=== PATIENT | male | born 1965 | race Caucasian/White ===

== ENCOUNTER 2019-08-04 14:47 | Observation (INO) | payer OTHER ==
[2019-08-04] MEDS ORDERED: Lactated Ringers 1,000 ML IV SCH ×2 (15:00→16:30)
[2019-08-04] MEDS ORDERED: Sodium Chloride 0.9% 10 ML Syringe FLUSH PRN ×2 (15:00→15:06)
[2019-08-04] MEDS ORDERED: HYDROmorphone 1 MG/ML Syringe IVPUSH ONE ×2 (15:05→15:42)
[2019-08-04] MEDS ORDERED: Iopamidol 755 Mg/ML 100 ML Bottle IVPUSH ONE (15:06)
[2019-08-04] MEDS ORDERED: Sodium Chloride 0.9% 100 ML IV SCH (15:15)
--- NOTE | 2019-08-04 15:53 | CT ---
Head CT Technique: Multiple axial sections through the brain were obtained. Intravenous contrast was not utilized. Comparison: No prior intracranial imaging is available. Findings: Ventricles along with basal cisterns and sulci over the convexities appear within normal limits for the patient's age. No abnormal parenchymal densities are seen. No evidence of intracranial hemorrhage. No midline shift or mass effect is seen. Slight mucosal thickening is seen within the frontal and ethmoid sinuses as well as maxillary sinuses which is most likely chronic. Mastoid sinuses are clear. No acute calvarial abnormality is appreciated. Impression: 1. Nothing acute is appreciated on noncontrast head CT exam. Diagnostic code #1
--- NOTE | 2019-08-04 16:02 | CT ---
CT chest Technique: Multiple axial sections were obtained from above the lung apices inferiorly through the lung bases. Intravenous contrast was utilized. Reconstructed coronal and sagittal images were obtained. Findings: Aorta shows no aneurysm. Mediastinum and hilar regions show no adenopathy. Small pretracheal lymph nodes are seen which are felt to be within normal limits. No axillary adenopathy is seen. No pericardial effusion is seen. Lungs show no acute parenchymal change. No pleural effusions or pneumothorax is seen. Fracture is noted within the left posterolateral seventh and eighth ribs. No discrete fracture is seen within the thoracic spine. Sternum appears to be intact. Impression: 1. Fractures within the left posterolateral seventh and eighth ribs. 2. No other acute abnormality is appreciated on CT study of the chest. Diagnostic code #3 CT abdomen and pelvis Technique: Multiple axial sections were obtained from above the dome of the diaphragm inferiorly to the pubic symphysis. Intravenous contrast was utilized. No oral contrast has been given. Findings: Liver shows no focal parenchymal abnormality. Gallbladder contains no calcified gallstones. Adrenal glands show no nodule. Pancreas is within normal limits. Multiple cysts are seen within the kidneys. Abnormal spleen as noted with low density intrasplenic hematoma seen as well as small subcapsular hematoma and small splenic laceration. This splenic injury does not appear to involve the vascular pedicle with intrasplenic hematoma measuring 4.8 cm. Findings are felt compatible with grade 2 splenic injury. Aorta shows no aneurysm. No retroperitoneal adenopathy or mesenteric abnormalities are seen. No pelvic mass or adenopathy is seen. No free fluid or inflammatory changes seen. Bone window settings were reviewed which shows no acute osseous abnormality. Impression: 1. Splenic laceration with intrasplenic hematoma and small sub-capsular hematoma. Findings felt compatible with grade 2 injury. 2. No other acute abnormality is seen on CT study of the abdomen and pelvis. Incidental renal cysts are seen. Diagnostic code #3
--- NOTE | 2019-08-04 16:08 | CT ---
CT cervical spine Technique: Multiple axial sections were obtained from above C1 inferiorly to the top of T2. Reconstructed sagittal and coronal images were reviewed. Findings: Mild disc space narrowing is noted at C3-C4. Minimal posterior spurring is noted at C3-C4. Mild disc space narrowing is noted at C4-C5. Mild posterior disc space narrowing is noted C5-C6. Vertebral body heights are maintained. Mild degenerative change is noted between the dens and anterior arch of C1. Mild degenerative change is scattered within the apophyseal joints. No bony central or bony neural foraminal stenosis is seen. No cervical spine fracture is seen. No abnormal subluxation is seen. Impression: 1. Mild diffuse degenerative change. 2. No acute fracture or abnormal subluxation is seen on CT study of cervical spine. Diagnostic code #2
--- NOTE | 2019-08-04 16:08 | CT ---
CT thoracic spine Technique: Multiple axial sections through the thoracic spine were obtained. Reconstructed coronal and sagittal images were obtained. Findings: Slight scoliosis is seen. No fracture is identified. No subluxation is seen. No central canal stenosis or neural foraminal stenosis is seen. Impression: 1. Nothing acute is appreciated on CT study of the thoracic spine. Diagnostic code #2
[2019-08-04] MEDS ORDERED: Morphine 2 MG/ML Syringe IVPUSH PRN (16:20)
--- NOTE | 2019-08-04 16:30 | PCM.HP.2 ---
H&P History of Present Illness - General Date of Service: 08/04/19 Admit Problem/Dx: Admission Diagnosis/Problem Admission Diagnosis/Problem Rib injury Source of Information: Patient History Limitations: Reports: No Limitations - History of Present Illness Onset of Symptoms: Reports: Today Duration of Symptoms: Reports: Hour(s): Location: Reports: Chest, Lower Extremity, Left Quality: Reports: Ache Severity: Severe Worsens with: Reports: Movement Context: Reports: Trauma Other HPI/Comments: 54 yo man fell 12 ft off a ladder 3 hours ago. He reports left sided chest pain , left knee and ankle pain. CT imaging shows 2 left sided rib fractures and a grade II splenic laceration. Chest Pain Score (Numeric/FACES): 10 - Related Data Allergies/Adverse Reactions: Allergies Allergy/AdvReac Type Severity Reaction Status Date / Time No Known Allergies Allergy Verified 08/04/19 15:01 Home Medications: Home Meds . [No Known Home Meds] 08/04/19 [History] Past Medical History HEENT History: Reports: None Cardiovascular History: Reports: None Respiratory History: Reports: None Gastrointestinal History: Reports: None Genitourinary History: Reports: None Neurological History: Reports: None Psychiatric History: Reports: None Endocrine/Metabolic History: Reports: None Hematologic History: Reports: None Immunologic History: Reports: None Oncologic (Cancer) History: Reports: None Dermatologic History: Reports: None - Infectious Disease History Infectious Disease History: Reports: None - Past Surgical History Head Surgeries/Procedures: Reports: None Other Musculoskeletal Surgeries/Procedures:: Left ankle surgery. Social & Family History - Tobacco Use Smoking Status *Q: Current Every Day Smoker Years of Tobacco use: 30 Packs/Tins Daily: 1 - Caffeine Use Caffeine Use: Reports: Soda - Recreational Drug Use Recreational Drug Use: Yes Recreational Drug Type: Reports: Marijuana/Hashish H&P Review of Systems - Review of Systems: Review Of Systems: See Below General: Reports: No Symptoms HEENT: Reports: No Symptoms Pulmonary: Reports: Cough, Sputum Cardiovascular: Reports: Chest Pain Gastrointestinal: Reports: No Symptoms Genitourinary: Reports: No Symptoms Musculoskeletal: Reports: Leg Pain, Foot Pain, Joint Swelling Skin: Reports: No Symptoms Psychiatric: Reports: No Symptoms Neurological: Reports: No Symptoms Hematologic/Lymphatic: Reports: No Symptoms Immunologic: Reports: No Symptoms Exam - Exam Exam: See Below - Vital Signs Vital Signs: Last Vital Signs Temp 36.1 C 08/04/19 14:58 Pulse 81 08/04/19 14:58 Resp 20 08/04/19 14:58 BP 95/78 08/04/19 14:58 Pulse Ox 96 08/04/19 14:58 Weight: 86.183 kg - Exam General: Alert, Oriented, Mild Distress HEENT: Conjunctiva Clear Neck: Supple Lungs: Clear to Auscultation Cardiovascular: Regular Rate GI/Abdominal Exam: Soft (Male) Exam: Deferred Rectal (Males) Exam: Deferred Back Exam: Normal Inspection Extremities: Other Skin: Warm, Dry Neurological: Sensation Intact Neuro Extensive - Mental Status: Alert, Oriented x3 Psychiatric: Alert, Normal Affect, Normal Mood - Patient Data Lab Results Last 24 hrs: Laboratory Results - last 24 hr 08/04/19 08/04/19 Range/Units 15:00 15:00 WBC 15.61 H (4.23-9.07) K/mm3 RBC 4.75 (4.63-6.08) M/mm3 Hgb 14.3 (13.7-17.5) gm/dl Hct 43.4 (40.1-51.0) % MCV 91.4 (79.0-92.2) fl MCH 30.1 (25.7-32.2) pg MCHC 32.9 (32.2-35.5) g/dl RDW Std Deviation 48.4 H (35.1-43.9) fL Plt Count 309 (163-337) K/mm3 MPV 8.7 L (9.4-12.3) fl Neut % (Auto) 80.0 H (34.0-67.9) % Lymph % (Auto) 11.9 L (21.8-53.1) % [place] % (Auto) 6.7 (5.3-12.2) % Eos % (Auto) 0.8 (0.8-7.0) Baso % (Auto) 0.2 (0.1-1.2) % Neut # (Auto) 12.48 H (1.78-5.38) K/mm3 Lymph # (Auto) 1.86 (1.32-3.57) K/mm3 [place] # (Auto) 1.04 H (0.30-0.82) K/mm3 Eos # (Auto) 0.13 (0.04-0.54) K/mm3 Baso # (Auto) 0.03 (0.01-0.08) K/mm3 Manual Slide Review Abnormal smear Sodium 142 (136-145) mEq/L Potassium 3.6 (3.5-5.1) mEq/L Chloride 106 (98-107) mEq/L Carbon Dioxide 28 (21-32) mEq/L Anion Gap 11.6 (5-15) BUN 16 (7-18) mg/dL Creatinine 0.9 (0.7-1.3) mg/dL Est Cr Clr Drug Dosing 95.76 mL/min Estimated GFR (MDRD) > 60 (>60) mL/min BUN/Creatinine Ratio 17.8 (14-18) Glucose 96 (74-106) mg/dL Calcium 8.9 (8.5-10.1) mg/dL Total Bilirubin 0.5 (0.2-1.0) mg/dL AST 45 H (15-37) U/L ALT 67 H (16-63) U/L Alkaline Phosphatase 100 (46-116) U/L Total Protein 7.6 (6.4-8.2) g/dl Albumin 3.4 (3.4-5.0) g/dl Globulin 4.2 gm/dL Albumin/Globulin Ratio 0.8 L (1-2) Lipase 146 (73-393) U/L Ethyl Alcohol 0.00 (0.00) gm% Result Diagrams: 08/04/19 15:00 08/04/19 15:00 *Q Meaningful Use (ADM) - VTE *Q VTE Mechanical Contraindications *Q: At Risk for Falls - VTE Risk Assess *Q Each Risk Factor Represents 1 Point: Age 41 - 59 years Total Score 1 Point Risk Factors: 1 Each Risk Factor Represents 5 Points: Multiple Trauma, Less than 1 Month Total Score 5 Point Risk Factors: 5 Problem List Initiated/Reviewed/Updated: Yes Orders Last 24hrs: Active Orders 24 hr Category Date Time Status Patient Status [ADT] Routine ADT 08/04/19 16:17 Active Activity as Tolerated [RC] .Routine Care 08/04/19 16:17 Active Antiembolic Devices [RC] PER UNIT ROUTINE Care 08/04/19 16:18 Active Antiembolic Devices [RC] PER UNIT ROUTINE Care 08/04/19 16:22 Active Cardiac Monitoring [RC] . DIRECTED Care 08/04/19 15:01 Active Chest Physiotherapy [RT Chest Physiotherapy] [RC] Care 08/04/19 16:20 Active ASDIRECTED Oxygen Therapy [RC] PRN Care 08/04/19 16:17 Active Oxygen Therapy [RC] PRN Care 08/04/19 16:21 Active Peripheral IV Care [RC] . DIRECTED Care 08/04/19 15:01 Active RT Incentive Spirometry [RC] Q1HWA Care 08/04/19 16:17 Active Vital Signs [RC] Q15M Care 08/04/19 16:17 Active Vital Signs [RC] Q4HR Care 08/04/19 16:17 Active Ankle Min 3V Lt [CR] Stat Exams 08/04/19 15:04 Taken Chest 2V [CR] Routine Exams 08/05/19 08:00 Ordered Knee Min 4V Lt [CR] Stat Exams 08/04/19 15:04 Taken BASIC METABOLIC PANEL,BMP [CHEM] AM Lab 08/05/19 05:11 Ordered CBC WITH AUTO DIFF [HEME] AM Lab 08/05/19 05:11 Ordered DRUG SCREEN, URINE [URCHEM] Stat Lab 08/04/19 15:00 Ordered UA W/MICROSCOPIC [URIN] Stat Lab 08/04/19 15:00 Ordered Acetaminophen [Tylenol] Med 08/04/19 16:30 Ordered 975 mg PO Q8H Lactated Ringers [Ringers, Lactated] 1,000 ml Med 08/04/19 15:00 Active IV ASDIRECTED Lactated Ringers [Ringers, Lactated] 1,000 ml Med 08/04/19 16:30 Ordered IV ASDIRECTED Morphine Med 08/04/19 16:20 Ordered 1 mg IVPUSH Q4H PRN Sodium Chloride 0.9% [Normal Saline] 100 ml Med 08/04/19 15:15 Active IV ASDIRECTED Sodium Chloride 0.9% [Saline Flush] Med 08/04/19 15:00 Active 10 ml FLUSH ASDIRECTED PRN Sodium Chloride 0.9% [Saline Flush] Med 08/04/19 15:06 Active 10 ml FLUSH ONETIME PRN oxyCODONE Med 08/04/19 16:17 Ordered 5 mg PO Q4H PRN Peripheral IV Insertion Adult [OM.PC] Stat Oth 08/04/19 15:00 Ordered Sequential Compression Device [OM.PC] Routine Oth 08/04/19 16:17 Ordered Sequential Compression Device [OM.PC] Routine Oth 08/04/19 16:22 Ordered Resuscitation Status Routine Resus Stat 08/04/19 16:17 Ordered Medication Orders Acetaminophen (Tylenol) 975 mg PO Q8H CYNTHIA Lactated Ringer's (Ringers, Lactated) 1,000 mls @ 125 mls/hr IV ASDIRECTED CYNTHIA Last Admin: 08/04/19 15:11 Dose: 125 mls/hr Sodium Chloride (Normal Saline) 100 mls @ 75 mls/hr IV ASDIRECTED CYNTHIA Last Admin: 08/04/19 15:30 Dose: 75 mls/hr Lactated Ringer's (Ringers, Lactated) 1,000 mls @ 100 mls/hr IV ASDIRECTED CYNTHIA Morphine Sulfate (Morphine) 1 mg IVPUSH Q4H PRN PRN Reason: Pain (severe 7-10) Oxycodone HCl (Oxycodone) 5 mg PO Q4H PRN PRN Reason: Pain (moderate 4-6) Sodium Chloride (Saline Flush) 10 ml FLUSH ASDIRECTED PRN PRN Reason: Keep Vein Open Last Admin: 08/04/19 15:10 Dose: 10 ml Sodium Chloride (Saline Flush) 10 ml FLUSH ONETIME PRN PRN Reason: IV FLUSH Last Admin: 08/04/19 15:30 Dose: 10 ml Assessment/Plan Comment:: Blunt trauma with splenic laceration and two left sided rib fractures. The left ankle is tender and swollen, final interpretation pending but X-rays look reassuring. Plan to admit for observation, pain control, and recheck CBC in AM. - Mortality Measure Prognosis:: Good
--- NOTE | 2019-08-04 17:28 | EDM.PDOC ---
ED HPI GENERAL MEDICAL PROBLEM - General Chief Complaint: Trauma Stated Complaint: FELL 12 FEET OFF LADDER RIB AND LT ANKLE INJURY Time Seen by Provider: 08/04/19 14:53 Source of Information: Reports: Patient History Limitations: Reports: No Limitations - History of Present Illness INITIAL COMMENTS - FREE TEXT/NARRATIVE: The patient presents after falling 12 fee off of a ladder. He has left chest and left upper back pain. He also has pain in his left knee and ankle. He does not think he his his head or hurt his neck. He has some pain to his upper abdomen also on the left side. He has no pelvic pain. He does smoke. He has pain to his left ankle and knee. He had surgery on his left ankle in the past. Onset: Today Duration: Hour(s): Location: Reports: Chest, Back, Lower Extremity, Left Quality: Reports: Ache Severity: Severe Worsens with: Reports: Movement Context: Reports: Trauma (Fell 12 feet off of a ladder) Associated Symptoms: Reports: Chest Pain, Shortness of Breath. Denies: Cough, Fever/Chills, Headaches, Nausea/Vomiting Chest Pain Score (Numeric/FACES): 10 - Related Data Allergies Allergy/AdvReac Type Severity Reaction Status Date / Time No Known Allergies Allergy Verified 08/04/19 15:01 Home Meds: Home Meds . [No Known Home Meds] 08/04/19 [History] Past Medical History HEENT History: Reports: None Cardiovascular History: Reports: None Respiratory History: Reports: None Gastrointestinal History: Reports: None Genitourinary History: Reports: None Neurological History: Reports: None Psychiatric History: Reports: None Endocrine/Metabolic History: Reports: None Hematologic History: Reports: None Immunologic History: Reports: None Oncologic (Cancer) History: Reports: None Dermatologic History: Reports: None - Infectious Disease History Infectious Disease History: Reports: None - Past Surgical History Head Surgeries/Procedures: Reports: None Other Musculoskeletal Surgeries/Procedures:: Left ankle surgery. Social & Family History - Tobacco Use Smoking Status *Q: Current Every Day Smoker Years of Tobacco use: 30 Packs/Tins Daily: 1 - Caffeine Use Caffeine Use: Reports: Soda - Recreational Drug Use Recreational Drug Use: Yes Recreational Drug Type: Reports: Marijuana/Hashish ED ROS GENERAL - Review of Systems Review Of Systems: See Below Constitutional: Reports: No Symptoms HEENT: Reports: No Symptoms Respiratory: Reports: Shortness of Breath Cardiovascular: Reports: Chest Pain Endocrine: Reports: No Symptoms GI/Abdominal: Reports: Abdominal Pain. Denies: Nausea, Vomiting : Reports: No Symptoms Musculoskeletal: Reports: Back Pain Neurological: Reports: No Symptoms Psychiatric: Reports: No Symptoms ED EXAM, GENERAL - Physical Exam Exam: See Below Exam Limited By: No Limitations General Appearance: Alert, Moderate Distress Ears: Normal External Exam Nose: Normal Inspection Head: Atraumatic, Normocephalic Neck: Normal Inspection, Supple, Non-Tender Respiratory/Chest: Lungs Clear, Normal Breath Sounds, Other (Pain upon palpation to the left lateral chest and left back) Cardiovascular: Regular Rate, Rhythm, No Edema, No Murmur GI/Abdominal: Soft, No Organomegaly, Tender (Moderate tednerness to the left upper abdomen) Back Exam: Other (Pain upon palpation to the left lateral back) Extremities: Other (Pain upon palpation to the left ankle with good sensation and pulses. Pain upon palpation to the left knee.) Course - Vital Signs Last Recorded V/S: Last Vital Signs Temp 96.9 F 08/04/19 14:58 Pulse 81 08/04/19 14:58 Resp 20 08/04/19 14:58 BP 95/78 08/04/19 14:58 Pulse Ox 96 08/04/19 14:58 - Orders/Labs/Meds Orders: Active Orders 24 hr Category Date Time Status Cardiac Monitoring [RC] . DIRECTED Care 08/04/19 15:01 Active Peripheral IV Care [RC] . DIRECTED Care 08/04/19 15:01 Active Ankle Min 3V Lt [CR] Stat Exams 08/04/19 15:04 Taken Knee Min 4V Lt [CR] Stat Exams 08/04/19 15:04 Taken DRUG SCREEN, URINE [URCHEM] Stat Lab 08/04/19 15:00 Ordered UA W/MICROSCOPIC [URIN] Stat Lab 08/04/19 15:00 Ordered Sodium Chloride 0.9% [Saline Flush] Med 08/04/19 15:00 Active 10 ml FLUSH ASDIRECTED PRN Sodium Chloride 0.9% [Saline Flush] Med 08/04/19 15:06 Active 10 ml FLUSH ONETIME PRN Peripheral IV Insertion Adult [OM.PC] Stat Oth 08/04/19 15:00 Ordered Medication Orders Acetaminophen (Tylenol) 975 mg PO Q8H CYNTHIA Lactated Ringer's (Ringers, Lactated) 1,000 mls @ 100 mls/hr IV ASDIRECTED CYNTHIA Morphine Sulfate (Morphine) 1 mg IVPUSH Q4H PRN PRN Reason: Pain (severe 7-10) Oxycodone HCl (Oxycodone) 5 mg PO Q4H PRN PRN Reason: Pain (moderate 4-6) Sodium Chloride (Saline Flush) 10 ml FLUSH ASDIRECTED PRN PRN Reason: Keep Vein Open Last Admin: 08/04/19 15:10 Dose: 10 ml Sodium Chloride (Saline Flush) 10 ml FLUSH ONETIME PRN PRN Reason: IV FLUSH Last Admin: 08/04/19 15:30 Dose: 10 ml Labs: Laboratory Tests 08/04/19 08/04/19 Range/Units 15:00 15:00 WBC 15.61 H (4.23-9.07) K/mm3 RBC 4.75 (4.63-6.08) M/mm3 Hgb 14.3 (13.7-17.5) gm/dl Hct 43.4 (40.1-51.0) % MCV 91.4 (79.0-92.2) fl MCH 30.1 (25.7-32.2) pg MCHC 32.9 (32.2-35.5) g/dl RDW Std Deviation 48.4 H (35.1-43.9) fL Plt Count 309 (163-337) K/mm3 MPV 8.7 L (9.4-12.3) fl Neut % (Auto) 80.0 H (34.0-67.9) % Lymph % (Auto) 11.9 L (21.8-53.1) % [place] % (Auto) 6.7 (5.3-12.2) % Eos % (Auto) 0.8 (0.8-7.0) Baso % (Auto) 0.2 (0.1-1.2) % Neut # (Auto) 12.48 H (1.78-5.38) K/mm3 Lymph # (Auto) 1.86 (1.32-3.57) K/mm3 [place] # (Auto) 1.04 H (0.30-0.82) K/mm3 Eos # (Auto) 0.13 (0.04-0.54) K/mm3 Baso # (Auto) 0.03 (0.01-0.08) K/mm3 Manual Slide Review Abnormal smear Sodium 142 (136-145) mEq/L Potassium 3.6 (3.5-5.1) mEq/L Chloride 106 (98-107) mEq/L Carbon Dioxide 28 (21-32) mEq/L Anion Gap 11.6 (5-15) BUN 16 (7-18) mg/dL Creatinine 0.9 (0.7-1.3) mg/dL Est Cr Clr Drug Dosing 95.76 mL/min Estimated GFR (MDRD) > 60 (>60) mL/min BUN/Creatinine Ratio 17.8 (14-18) Glucose 96 (74-106) mg/dL Calcium 8.9 (8.5-10.1) mg/dL Total Bilirubin 0.5 (0.2-1.0) mg/dL AST 45 H (15-37) U/L ALT 67 H (16-63) U/L Alkaline Phosphatase 100 (46-116) U/L Total Protein 7.6 (6.4-8.2) g/dl Albumin 3.4 (3.4-5.0) g/dl Globulin 4.2 gm/dL Albumin/Globulin Ratio 0.8 L (1-2) Lipase 146 (73-393) U/L Ethyl Alcohol 0.00 (0.00) gm% Meds: Medications Generic Name Dose Route Start Last Admin Trade Name Freq PRN Reason Stop Dose Admin Acetaminophen 975 mg 08/04/19 16:30 Tylenol PO Q8H CYNTHIA Lactated Ringer's 1,000 mls @ 100 mls/hr 08/04/19 16:30 Ringers, Lactated IV ASDIRECTED CYNTHIA Morphine Sulfate 1 mg 08/04/19 16:20 Morphine IVPUSH Q4H PRN Pain (severe 7-10) Oxycodone HCl 5 mg 08/04/19 16:17 Oxycodone PO Q4H PRN Pain (moderate 4-6) Sodium Chloride 10 ml 08/04/19 15:00 08/04/19 15:10 Saline Flush FLUSH 10 ml ASDIRECTED PRN Administration Keep Vein Open Sodium Chloride 10 ml 08/04/19 15:06 08/04/19 15:30 Saline Flush FLUSH 10 ml ONETIME PRN Administration IV FLUSH Discontinued Medications Generic Name Dose Route Start Last Admin Trade Name Adithya PRN Reason Stop Dose Admin Hydromorphone HCl 1 mg 08/04/19 15:05 08/04/19 15:09 Dilaudid IVPUSH 08/04/19 15:06 1 mg ONETIME ONE Administration Hydromorphone HCl 1 mg 08/04/19 15:42 08/04/19 15:49 Dilaudid IVPUSH 08/04/19 15:43 1 mg ONETIME ONE Administration Lactated Ringer's 1,000 mls @ 125 mls/hr 08/04/19 15:00 08/04/19 15:11 Ringers, Lactated IV 125 mls/hr ASDIRECTED CYNTHIA Administration Sodium Chloride 100 mls @ 75 mls/hr 08/04/19 15:15 08/04/19 15:30 Normal Saline IV 75 mls/hr ASDIRECTED CYNTHIA Administration Iopamidol 100 ml 08/04/19 15:06 08/04/19 15:30 [id number] (76%) IVPUSH 08/04/19 15:07 100 ml ONETIME ONE Administration - Re-Assessments/Exams Free Text/Narrative Re-Assessment/Exam: 08/04/19 17:30 I ordered an IV LR at 125mL/hr, dilaudid 1mg IV, CT of his head, cervical spine , thoracic spine, chest, abdomen and pelvis. I have also ordered labs and an x- ray of his ankle and knee. 08/04/19 18:[address] of his thoracic spine shows nothing acute. The CT of his cervical spine shows mild diffuse degenerative change. No acute fracture or abnormal subluxation is seen on CT study of the cervical spine. The CT of his head shows nothing acute is appreciated on noncontrast head CT exam. The CT of his chest shows fractures within the left posterolateral seventh and eighth ribs. No other acute abnormality is appreciated on CT study of the chest. The CT of his abdomen and pelvis shows splenic laceration with intrasplenic hematoma and small sub-capsular hematoma. Findings felt compatible with grade 2 injury. No other acute abnormality is seen on CT study of the abdomen and pelvis. Incidental renal cysts are seen. 08/04/19 18:25 His WBC was elevated at 15.61. His AST is elevated at 45. His ALT is elevated at 67. His lipase is normal. His ETOH is 0. I [address] Dr Otto and he came to see the patient and he admitted him. Departure - Departure Time of Disposition: 18:30 Disposition: Refer to Observation Condition: Fair Clinical Impression: Fall Qualifiers: Encounter type: initial encounter Qualified Code(s): W19.XXXA - Unspecified fall, initial encounter Splenic laceration Qualifiers: Encounter type: initial encounter Qualified Code(s): S36.039A - Unspecified laceration of spleen, initial encounter Broken ribs Qualifiers: Encounter type: initial encounter Rib fracture type: multiple ribs Fracture type: closed Laterality: left Qualified Code(s): S22.42XA - Multiple fractures of ribs, left side, initial encounter for closed fracture - Discharge Information - My Orders Last 24 Hours: My Active Orders 08/04/19 15:00 DRUG SCREEN, URINE [URCHEM] Stat UA W/MICROSCOPIC [URIN] Stat Sodium Chloride 0.9% [Saline Flush] 10 ml FLUSH ASDIRECTED PRN Peripheral IV Insertion Adult [OM.PC] Stat 08/04/19 15:01 Cardiac Monitoring [RC] . DIRECTED Peripheral IV Care [RC] . DIRECTED 08/04/19 15:04 Ankle Min 3V Lt [CR] Stat Knee Min 4V Lt [CR] Stat 08/04/19 15:06 Sodium Chloride 0.9% [Saline Flush] 10 ml FLUSH ONETIME PRN - Assessment/Plan Last 24 Hours: My Active Orders 08/04/19 15:00 DRUG SCREEN, URINE [URCHEM] Stat UA W/MICROSCOPIC [URIN] Stat Sodium Chloride 0.9% [Saline Flush] 10 ml FLUSH ASDIRECTED PRN Peripheral IV Insertion Adult [OM.PC] Stat 08/04/19 15:01 Cardiac Monitoring [RC] . DIRECTED Peripheral IV Care [RC] . DIRECTED 08/04/19 15:04 Ankle Min 3V Lt [CR] Stat Knee Min 4V Lt [CR] Stat 08/04/19 15:06 Sodium Chloride 0.9% [Saline Flush] 10 ml FLUSH ONETIME PRN
[2019-08-04] MEDS: Acetaminophen 325 MG Tab PO SCH (18:26)
--- NOTE | 2019-08-04 18:44 | CR ---
Left ankle: 3 views left ankle were obtained. Comparison: No prior ankle study. Mild soft tissue swelling is seen. Small plantar spur is noted. No acute fracture, dislocation or other acute bony abnormality is appreciated. Small calcification is seen posteriorly which projects within the Achilles tendon presumably due to old Achilles tendinitis. Impression: 1. Findings as noted above. 2. No acute bony abnormality is appreciated. Diagnostic code #2
[2019-08-04] MEDS: oxyCODONE 5 MG Tab PO PRN (20:54)
[2019-08-05] MEDS: Acetaminophen 325 MG Tab PO SCH ×3 (00:18→16:29)
[2019-08-05] MEDS: oxyCODONE 5 MG Tab PO PRN ×2 (02:35→07:57)
[2019-08-05] MEDS ORDERED: oxyCODONE 5 MG Tab PO PRN (07:44)
--- NOTE | 2019-08-05 08:53 | PCM.SN ---
- Free Text/Narrative Note: S: poor pain control. O: AF-VSS Gen: mild distress. awake and alert Pulm: slight tachypnea, good inspiratory effort CV: RRR Abd: soft MSK: left knee tenderness and left ankle swelling and tenderness Radiology: two left sided rib fractures, no bony abnormality noted on plain films of left ankle, knee A: Trauma, fall, with rib fractures, subcapsular splenic hematoma (no worrisome drop in Hgb since admission- Hgb 13 this AM), left ankle sprain Plan: Vitals q 8 Toradol 15 mg q6h scheduled for 24 hours d/c morphine, continue with oxycodone 5-10 mg as needed joe regular diet Physical therapy eval Continue pulmonary toilet Anticipate discharge today or tomorrow if pain is manageable
[2019-08-05] MEDS: Ketorolac 15 MG/ML SDV IVPUSH SCH ×2 (09:32→14:26)
--- NOTE | 2019-08-05 10:12 | CR ---
Chest: 2 views of the chest were obtained. Comparison: Prior chest CT study of 08/04/19. Findings: Mild left basilar atelectasis is noted. Lungs otherwise are clear. No pneumothorax is seen. Fractures are noted within the left 7th and 8th ribs. Old healed fracture is noted within the left clavicle. No additional bony abnormality is appreciated. Heart size and mediastinum are normal. Impression: 1. 2 left lower rib fractures. Old healed left clavicle fracture. 2. Mild left basilar atelectasis. No pneumothorax is seen. Diagnostic code #3
--- NOTE | 2019-08-05 13:45 | CR ---
Left knee: Four views of the left knee were obtained. Comparison: No prior knee exam. Moderate medial joint space narrowing is seen. Lateral joint space is preserved. No joint effusion is seen. No fracture, dislocation or other bony abnormality is seen. Impression: 1. Moderate medial joint space narrowing. 2. Nothing acute is appreciated on left knee exam. Diagnostic code #2
--- NOTE | 2019-08-05 17:35 | PCM.DCSUM1 ---
Discharge Summary - Hospital Course Free Text/Narrative:: Admitted for observation after 12 foot fall from ladder with two left sided rib fractures, grade 2 splenic laceration, and left ankle sprain. Diagnosis: Stroke: No - Discharge Data Discharge Date: 08/05/19 (with DME) Discharge Disposition: Home, Self-Care 01 Condition: Good - Referral to Home Health Primary Care Physician: PCP None - Patient Summary/Data Consults: Consultations 08/05/19 07:46 Consult to Physical Therapy [PT Evaluation and Treatment] [CONS] Routine Hospital Course: Admitted for observation and pain control. Weaned off IV narcotics and received 24 hrs scheduled toradol. Repeat CBC showed insignificant drop in Hgb. He was evaluated by PT and will go home with a walker and shower chair. His pain was well enough controlled 24 hours after admission that he was deemed fit for discharge. He was able to draw 2L on incentive spirometry and never required supplemental oxygen to maintain O2 saturations. - Patient Instructions Diet: Regular Diet as Tolerated Activity: Partial Weight Bearing Activity, Other: continue incentive spirometry - Discharge Plan *PRESCRIPTION DRUG MONITORING PROGRAM REVIEWED*: Not Applicable *COPY OF PRESCRIPTION DRUG MONITORING REPORT IN PATIENT GUS: Not Applicable Prescriptions/Med Rec: oxyCODONE 5 mg PO Q4H PRN #40 tab PRN Reason: Pain Home Medications: Home Meds oxyCODONE 5 mg PO Q4H PRN #40 tab 08/05/19 [Rx] Other Amb Orders: DME for Discharge [COMM] Location: None Selected Oxygen Therapy Mode: Room Air Forms: ED Department Discharge Referrals: PCP,None [Primary Care Provider] - - Discharge Summary/Plan Comment DC Time >30 min.: Yes Discharge Summary/Plan Comment: follow up with PCP. Follow up in surgery clinic in [place] as needed. - Patient Data Vitals - Most Recent: Last Vital Signs Temp 36.7 C 08/05/19 15:14 Pulse 70 08/05/19 15:14 Resp 18 08/05/19 15:14 BP 130/75 08/05/19 15:14 Pulse Ox 93 L 08/05/19 15:14 Weight - Most Recent: 88.224 kg I&O - Last 24 hours: Intake & Output 08/05/19 08/05/19 08/05/19 06:59 14:59 22:59 Intake Total 240 750 Output Total 400 Balance 240 350 Lab Results - Last 24 hrs: Laboratory Results - last 24 hr 08/05/19 08/05/19 08/05/19 Range/Units 03:01 03:01 05:32 WBC 11.05 H (4.23-9.07) K/mm3 RBC 4.31 L (4.63-6.08) M/mm3 Hgb 13.0 L (13.7-17.5) gm/dl Hct 39.6 L (40.1-51.0) % MCV 91.9 (79.0-92.2) fl MCH 30.2 (25.7-32.2) pg MCHC 32.8 (32.2-35.5) g/dl RDW Std Deviation 49.5 H (35.1-43.9) fL Plt Count 238 (163-337) K/mm3 MPV 9.0 L (9.4-12.3) fl Neut % (Auto) 66.9 (34.0-67.9) % Lymph % (Auto) 21.7 L (21.8-53.1) % Island % (Auto) 9.7 (5.3-12.2) % Eos % (Auto) 1.0 (0.8-7.0) Baso % (Auto) 0.2 (0.1-1.2) % Neut # (Auto) 7.40 H (1.78-5.38) K/mm3 Lymph # (Auto) 2.40 (1.32-3.57) K/mm3 [place] # (Auto) 1.07 H (0.30-0.82) K/mm3 Eos # (Auto) 0.11 (0.04-0.54) K/mm3 Baso # (Auto) 0.02 (0.01-0.08) K/mm3 Sodium (136-145) mEq/L Potassium (3.5-5.1) mEq/L Chloride (98-107) mEq/L Carbon Dioxide (21-32) mEq/L Anion Gap (5-15) BUN (7-18) mg/dL Creatinine (0.7-1.3) mg/dL Est Cr Clr Drug Dosing mL/min Estimated GFR (MDRD) (>60) mL/min BUN/Creatinine Ratio (14-18) Glucose (74-106) mg/dL Calcium (8.5-10.1) mg/dL Urine Color Yellow (Yellow) Urine Appearance Clear (Clear) Urine pH 6.0 (5.0-8.0) Ur Specific [place] 1.020 (1.005-1.030) Urine Protein Trace H (Negative) Urine Glucose (UA) Negative (Negative) Urine Ketones Negative (Negative) Urine Occult Blood Negative (Negative) Urine Nitrite Negative (Negative) Urine Bilirubin 1+ H (Negative) Urine Urobilinogen 1.0 (0.2-1.0) Ur Leukocyte Esterase Negative (Negative) Urine Opiates Screen Negative (VRPQRA=678) Ur Buprenorphine Scrn Negative (CUTOFF=10) Ur Oxycodone Screen Presumptive positive H (ZCX2WC=970) Urine Methadone Screen Negative (GUS0EW=514) Ur Propoxyphene Screen Negative (VYLQZM=881) Ur Barbiturates Screen Negative (IDWEKC=087) Ur Tricyclics Screen Negative (AIDHMO=462) Ur Phencyclidine Scrn Negative (CUTOFF=25) Ur Amphetamine Screen Negative (UERLPE=542) U Methamphetamines Scrn Negative (ZUIYYT=252) U Benzodiazepines Scrn Negative (SDWSNY=170) U Cocaine Metab Screen Negative (AEUFFU=596) U Marijuana (THC) Screen Presumptive positive H (CUTOFF=50) 08/05/19 Range/Units 05:32 WBC (4.23-9.07) K/mm3 RBC (4.63-6.08) M/mm3 Hgb (13.7-17.5) gm/dl Hct (40.1-51.0) % MCV (79.0-92.2) fl MCH (25.7-32.2) pg MCHC (32.2-35.5) g/dl RDW Std Deviation (35.1-43.9) fL Plt Count (163-337) K/mm3 MPV (9.4-12.3) fl Neut % (Auto) (34.0-67.9) % Lymph % (Auto) (21.8-53.1) % Island % (Auto) (5.3-12.2) % Eos % (Auto) (0.8-7.0) Baso % (Auto) (0.1-1.2) % Neut # (Auto) (1.78-5.38) K/mm3 Lymph # (Auto) (1.32-3.57) K/mm3 [place] # (Auto) (0.30-0.82) K/mm3 Eos # (Auto) (0.04-0.54) K/mm3 Baso # (Auto) (0.01-0.08) K/mm3 Sodium 140 (136-145) mEq/L Potassium 3.2 L (3.5-5.1) mEq/L Chloride 106 (98-107) mEq/L Carbon Dioxide 24 (21-32) mEq/L Anion Gap 13.2 (5-15) BUN 14 (7-18) mg/dL Creatinine 0.8 (0.7-1.3) mg/dL Est Cr Clr Drug Dosing 107.73 mL/min Estimated GFR (MDRD) > 60 (>60) mL/min BUN/Creatinine Ratio 17.5 (14-18) Glucose 109 H (74-106) mg/dL Calcium 8.3 L (8.5-10.1) mg/dL Urine Color (Yellow) Urine Appearance (Clear) Urine pH (5.0-8.0) Ur Specific [place] (1.005-1.030) Urine Protein (Negative) Urine Glucose (UA) (Negative) Urine Ketones (Negative) Urine Occult Blood (Negative) Urine Nitrite (Negative) Urine Bilirubin (Negative) Urine Urobilinogen (0.2-1.0) Ur Leukocyte Esterase (Negative) Urine Opiates Screen (QOTTTD=446) Ur Buprenorphine Scrn (CUTOFF=10) Ur Oxycodone Screen (YLY9UJ=361) Urine Methadone Screen (AQT9NH=661) Ur Propoxyphene Screen (KPQDNV=219) Ur Barbiturates Screen (MGWMGW=514) Ur Tricyclics Screen (FKJNFU=544) Ur Phencyclidine Scrn (CUTOFF=25) Ur Amphetamine Screen (GJFSBI=256) U Methamphetamines Scrn (SEUVUI=739) U Benzodiazepines Scrn (LZFHIV=364) U Cocaine Metab Screen (YQORNI=372) U Marijuana (THC) Screen (CUTOFF=50) Med Orders - Current: Current Medications Acetaminophen (Tylenol) 975 mg PO Q8H [facility] Last Admin: 08/05/19 16:29 Dose: 975 mg Ketorolac Tromethamine (Toradol) 15 mg IVPUSH Q6H [facility] Stop: 08/06/19 12:00 Last Admin: 08/05/19 14:26 Dose: 15 mg Oxycodone HCl (Oxycodone) 5 mg PO Q4H PRN PRN Reason: Pain (moderate 4-6) Last Admin: 08/05/19 07:57 Dose: 5 mg Oxycodone HCl (Oxycodone) 10 mg PO Q4H PRN PRN Reason: Pain (severe 7-10) Last Admin: 08/05/19 16:33 Dose: 10 mg Discontinued Medications Hydromorphone HCl (Dilaudid) 1 mg IVPUSH ONETIME ONE Stop: 08/04/19 15:06 Last Admin: 08/04/19 15:09 Dose: 1 mg Hydromorphone HCl (Dilaudid) 1 mg IVPUSH ONETIME ONE Stop: 08/04/19 15:43 Last Admin: 08/04/19 15:49 Dose: 1 mg Lactated Ringer's (Ringers, Lactated) 1,000 mls @ 125 mls/hr IV ASDIRECTED [facility] Last Admin: 08/04/19 15:11 Dose: 125 mls/hr Sodium Chloride (Normal Saline) 100 mls @ 75 mls/hr IV ASDIRECTED [facility] Last Admin: 08/04/19 15:30 Dose: 75 mls/hr Lactated Ringer's (Ringers, Lactated) 1,000 mls @ 100 mls/hr IV ASDIRECTED [facility] Last Admin: 08/05/19 00:19 Dose: 100 mls/hr Iopamidol (Isovue-370 (76%)) 100 ml IVPUSH ONETIME ONE Stop: 08/04/19 15:07 Last Admin: 08/04/19 15:30 Dose: 100 ml Morphine Sulfate (Morphine) 1 mg IVPUSH Q4H PRN PRN Reason: Pain (severe 7-10) Sodium Chloride (Saline Flush) 10 ml FLUSH ASDIRECTED PRN PRN Reason: Keep Vein Open Last Admin: 08/04/19 15:10 Dose: 10 ml Sodium Chloride (Saline Flush) 10 ml FLUSH ONETIME PRN PRN Reason: IV FLUSH Last Admin: 08/04/19 15:30 Dose: 10 ml *Q Meaningful Use (DIS) - VTE *Q VTE Mechanical Contraindications *Q: At Risk for Falls
[2019-08-05] MEDS ORDERED: Ketorolac 15 MG/ML SDV IVPUSH ONE (18:00)
== END 2019-08-05 18:26 | disposition home or self-care (01) ==
LOC: JD.ED 14:47 → JD.MS 16:17
PROVIDERS: ADMIT Surgery; ATTEND Surgery
DX: S22.42XA Multiple fractures of ribs, left side, initial encounter for closed fracture (principal); S36.039A Unspecified laceration of spleen, initial encounter; S93.402A Sprain of unspecified ligament of left ankle, initial encounter; F17.200 Nicotine dependence, unspecified, uncomplicated; W11.XXXA Fall on and from ladder, initial encounter
CPT/HCPCS: 36415; 70450; 71046; 71260; 72125; 72128; 73564; 73610; 74177; 80048; 80053; 80306; 80320; 81001; 83690; 85025; 94667; 96361; 96374; 96376; 97162; 99285; A9270; J1170; J1885; J7030; J7120; Q9967; 96375; G0378; G0480